=== PATIENT | female | born 1950 | race Caucasian/White ===

== ENCOUNTER 2017-09-18 10:10 | Inpatient (IN) ==
[2017-09-11 20:21] LABS: Appearance,Urine CLEAR; Bacteria,Urine 0 /hpf (0); Bilirubin,Urine NEG (NEG); Color,Urine STRAW; Glucose,Urine (UA) NEGATIVE (NEG); Leukocyte Esterase,Urine NEG /uL (NEG); Mucus,Urine FEW /hpf (0); Protein,Urine NEG (NEG); Specific Gravity,Urine 1.011 (1.000-1.035); Urine Blood 0.03 mg/dL (<0.03); Urine RBC < 1 /hpf (0-1); Urine Squamous Epithelial Cell 1 /hpf (0-4); Urine WBC < 1 /hpf (0-4); Urobilinogen,Urine NEG (NEG)
[2017-09-11 20:29] LABS: Blood Urea Nitrogen 19 mg/dl (8-23)
[2017-09-11 20:41] LABS: Basophils # (Auto) 0 K/mcL (0.0-0.3); Basophils % (Auto) 0.4 % (0.0-2.0); Eosinophils # (Auto) 0.3 K/mcL (0.0-0.7); Eosinophils % (Auto) 3.6 % (0.0-7.0); Granulocytes % (Auto) 53.2 % (38.0-78.0); Lymphocytes # (Auto) 2.6 K/mcL (1.5-4.8); Lymphocytes % (Auto) 31.9 % (15.5-49.0); Mean Cell Volume 90.8 fL (80.0-100.0); Mean Corpuscular HGB Conc 33.3 g/dL (31.0-36.0); Mean Corpuscular Hemoglobin 30.2 pg (26.0-34.0); Monocytes # (Auto) 0.9 K/mcL (0.1-0.9); Monocytes % (Auto) 10.9 % (1.0-12.0); Platelet Count 273 K/mcL (140-440); RBC 4.75 M/mcL (4.00-5.20); Red Cell Distribution Width 13.1 % (11.5-14.5)
[~2017-09-18 10:10] MED LIST: CELECOXIB 200 MG CAPSULE PO SCH; PREGABALIN 75 MG CAPSULE PO SCH; ceFAZolin 1 GM VIAL IV SCH; oxyCODONE 10 MG TAB.ER.12H PO SCH
[2017-09-18] MEDS ORDERED: MIDAZOLAM 2 MG/2 ML VIAL IV ONE (13:00)
[2017-09-18] MEDS ORDERED: TRANEXAMIC ACID 1,000 MG/10 ML VIAL IV ONE ×2 (13:00→14:37)
[2017-09-18] MEDS ORDERED: KETAMINE 100 MG/ML ML IV ONE (13:00)
[2017-09-18] MEDS ORDERED: ONDANSETRON 4 MG/2 ML VIAL IV ONE (13:00)
[2017-09-18] MEDS ORDERED: METOPROLOL TARTRATE 5 MG/5 ML VIAL IV ONE (13:00)
[2017-09-18] MEDS ORDERED: DEXAMETHASONE 10 MG/ML VIAL IV ONE (13:00)
[2017-09-18] MEDS ORDERED: LIDOCAINE HCL/PF 100 MG/5 ML SYRINGE IV ONE (13:00)
[2017-09-18] MEDS ORDERED: PROPOFOL 200 MG/20 ML VIAL IV ONE (13:00)
[2017-09-18] MEDS ORDERED: ROPIVACAINE HCL/PF 30 ML VIAL IJ ONE (13:00)
[2017-09-18] MEDS ORDERED: SUCCINYLCHOLINE 20 MG/ML ML IV ONE (13:00)
[2017-09-18] MEDS ORDERED: fentaNYL 250 MCG/5 ML VIAL IV ONE (13:00)
[2017-09-18] MEDS ORDERED: GENTAMICIN SULFATE 800 MG/20 ML VIAL IR ONE (13:46)
[2017-09-18] MEDS ORDERED: LACTATED RINGERS 250 ML IV PRN (14:27)
[2017-09-18] MEDS ORDERED: fentaNYL 100 MCG/2 ML VIAL IV PRN (14:27)
[2017-09-18] MEDS ORDERED: MEPERIDINE 25 MG/ML SYRINGE IV PRN (14:27)
[2017-09-18] MEDS ORDERED: ACETAMINOPHEN 1,000 MG/100 ML BOTTLE IV ONE (14:27)
[2017-09-18] MEDS ORDERED: ONDANSETRON 4 MG/2 ML VIAL IV PRN ×2 (14:27→14:37)
[2017-09-18] MEDS ORDERED: BENZOCAINE/MENTHOL 1 LOZENGE PO PRN ×2 (14:27→14:37)
[2017-09-18] MEDS ORDERED: diphenhydrAMINE 50 MG/ML VIAL IV PRN (14:27)
[2017-09-18] MEDS ORDERED: PROMETHAZINE 25 MG/ML VIAL IV PRN (14:27)
[2017-09-18] MEDS ORDERED: FLUMAZENIL 0.1 MG/ML ML IV PRN (14:27)
[2017-09-18] MEDS ORDERED: NALOXONE HCL 0.4 MG/ML VIAL IV PRN (14:27)
[2017-09-18] MEDS ORDERED: IPRATROPIUM/ALBUTEROL 3 ML AMPUL.NEB NEB PRN (14:27)
[2017-09-18] MEDS ORDERED: LACTATED RINGERS 1,000 ML IV SCH (14:30)
--- NOTE | 2017-09-18 14:36 | Brief Operative Note ---
Date of procedure: 09/18/17 Pre-op diagnosis: right shoulder rtc tear with glenohumeral oa Post-op diagnosis: same Procedure: right reverse tsa Grafts/Implants: Yes Anesthesia: GETA Complications: none Surgeon: Ihsan Chaves Residential Program Worker: Jemma Padilla Estimated blood loss (cc): 150 Specimens Removed/Pathology: none sent Condition: stable Disposition: PACU
[2017-09-18] MEDS ORDERED: BISACODYL 10 MG SUPP.RECT PR PRN (14:37)
[2017-09-18] MEDS ORDERED: FLEETS ADULT ENEMA PR PRN (14:37)
[2017-09-18] MEDS ORDERED: POLYETHYLENE GLYCOL 3350 17 GM PACKET PO PRN (14:37)
[2017-09-18] MEDS ORDERED: METHOCARBAMOL 750 MG TABLET PO PRN (14:37)
[2017-09-18] MEDS ORDERED: KETOROLAC 15 MG/ML VIAL IV PRN (14:37)
[2017-09-18] MEDS ORDERED: ONDANSETRON ODT 4 MG TABLET SL PRN (14:37)
[2017-09-18] MEDS ORDERED: MAGNESIUM HYDROXIDE 30 ML ORAL.SUSP PO PRN (14:37)
--- NOTE | 2017-09-18 14:37 | Discharge Summary ---
Ortho Discharge - TSA - Patient Instructions Diet: Regular Diet Activity: non weight bearing Total Shoulder Protocol: Leave immobilizer in place except for bathing and ROM. Abduction pillow. Continue to wear sling until seen by physician. Codman Pendulum : These exercises use momentum produced by your body to move your shoulder joint. Bend your knees and shift your weight to your front leg, then back, allowing your arm to swing in the same directions. Using the same technique, alternately shift your weight between your right and left legs, allowing your arm to swing from side to side. These exercises are also performed in counterclockwise and clockwise circular motions. Typically these exercises are performed several times per day, for a set number repetitions or minutes, such as 20 times in a row or 5 minutes at a time. Dressing Care: May shower in 2 days - Follow Up Plan Follow Up Appointments: Ihsan Chaves MD [Physician] - 10/03/17 1:30 pm Disposition: Home, Self-Care Prognosis: Good Rehab Potential: Good I certify that the patient requires SNF services: No Overall status at discharge: patient is progressing back to baseline
--- NOTE | 2017-09-18 15:03 | Operative Note ---
DATE OF OPERATION: 09/18/2017 PREOPERATIVE DIAGNOSIS: Right shoulder rotator cuff tear arthropathy. POSTOPERATIVE DIAGNOSIS: Right shoulder rotator cuff tear arthropathy. PROCEDURES: 1. Right reverse total shoulder arthroplasty. 2. Right shoulder proximal biceps soft tissue tenodesis. SURGEON: Dionisio Chaves M.D. CUSTOMER CARE ASSISTANT SURGEON: Jemma Padilla PA-C ANESTHESIA: General. ESTIMATED BLOOD LOSS: 150 mL COMPLICATIONS: None noted. SPECIMENS REMOVED: None. DRAINS: None. IMPLANTS: De[employer] Delta Xtend modular humeral stem size 10, CALLES coated cementless, De[employer]uy Delta Xtend modular eccentric epiphysis size 1 right, De[employer]uy Delta Xtend humeral polyethylene cup 38 +3 standard, De[employer]uy Delta Xtend glenosphere 38 mm standard, De[employer]uy Delta Xtend nonlocking metaglene screw 4.5 x 18 and locking Metaglene screw 4.5 x 25 x2 and 4.5 x 18 x2, Delta Xtend cementless metaglene, CALLES coated cementless. INDICATIONS: The patient has had a longstanding history of worsening pain in the shoulder that has failed conservative treatment. Radiographs have confirmed advanced degenerative joint disease and a failed rotator cuff. After a long discussion about treatment options, the patient elected to proceed with a reverse total shoulder arthroplasty. The risks and benefits were discussed with the patient in detail including, but not limited to, the risks of anesthesia, problems with the heart or lungs related to anesthesia, infection, compromise or injury to the nerves and blood vessels, deep venous thrombosis, pulmonary embolism, pneumonia, continued pain after surgery, worsening pain or symptoms after surgery, swelling, loss of motion, instability, fracture, arm length discrepancy, and need for repeat surgery. DESCRIPTION OF PROCEDURE: The patient was seen in the pre-anesthesia waiting room where all questions were answered and the correct side and site were identified and marked. The patient was transferred to the operating room and administered the anesthetic and given preoperative antibiotics. A time-out was then called. The patient was placed in the modified beach chair position with all prominences well padded. The extremity was prepped and draped from the fingers up to the neck. A standard deltopectoral skin incision was created. Dissection was carried down to the deltopectoral groove and the cephalic vein was isolated medially and retracted laterally with the deltoid. Retractors were placed and the coracobrachialis was split up to the coracoacromial ligament allowing retraction of the conjoined tendon. We split the subscapularis 1 cm medial to the bicipital groove and extended the split into the rotator interval. This was tagged for later repair. The supraspinatus and infraspinatus had been previously torn and retracted. The biceps was cut and a soft tissue tenodesis was performed into the anterior shoulder with #2 FiberWire. A capsular release was performed in a posterior subperiosteal direction along the humerus. The humeral head was then dislocated. We established intramedullary access and hand reamed up to get good cortical chatter with the [employer] Delta XTEND reverse total shoulder instrumentation. We then used the intramedullary guide and set to about 5 degrees of retroversion. The proximal humerus cut was performed and osteophytes were removed. A metal protector plate was then placed. Attention was then turned to the glenoid. Retractors were placed for optimal visualization and the labrum was excised in its entirety. A centralizing Steinmann pin was placed just into the posterior inferior quadrant in a standard fashion. We reamed over the pin to remove all the cartilage and get to a good base for the prosthesis. The drill was then placed over for the central peg. A cementless Metaglene was then impacted into place. We then drilled, measured, and placed the four screws starting inferior, then superior, then anterior, and finally posterior. The superior locking screw was lined up at the base of the coracoid process. We then impacted the head onto the Metaglene and tightened down in a standard fashion. Attention was then turned back to the humerus. Proximal reaming was performed off the intramedullary guide into the humeral head, using the eccentric guide to allow best coverage. We again set version and broached up to a stable implant. Trials were placed and good tension, motion, and stability were obtained at this point. Trials were removed and the final press fit femoral prosthesis was impacted into place with measured version. The final polyethylene was placed and the shoulder was reduced and again checked for motion, tension, and stability. We irrigated with 3 liters of antibiotic saline and closed the subscapularis with # 2 FiberWire. We irrigated again and closed the deltopectoral interval with several # 0 Vicryl figure of eight sutures. The subcutaneous layer was closed with 2-0 Vicryl and the skin was closed with 4-0 Monocryl in a subcuticular fashion. A sterile pressure dressing was applied and the patient was placed into an abduction sling. All needle and sponge counts were correct. The patient was transferred to the recovery room in stable condition. TANI:[email or web address] Job ID: [id number] Doc ID: [id number] Dionisio Chaves MD
--- NOTE | 2017-09-18 16:07 | XRay Report ---
HISTORY: Reason for Exam:Post-OP Total Shoulder FINDINGS: There is a well-positioned reverse total shoulder prosthesis. No fracture or abnormal soft tissue calcification are present. IMPRESSION: Well-positioned right shoulder prosthesis Interpreted and Authenticated by: Apollo Waldron 09/18/17
[2017-09-18] MEDS: 0.9 % SODIUM CHLORIDE 1,000 ML IV SCH (16:27)
[2017-09-18] MEDS: ceFAZolin 1 GM VIAL IV SCH (20:44)
[2017-09-18] MEDS: HYDROcodone/APAP 10/325MG TABLET PO PRN (20:44)
[2017-09-18] MEDS: 0.9 % SODIUM CHLORIDE 10 ML SYRINGE IV SCH (20:45)
[2017-09-18] MEDS: DOCUSATE SODIUM 100 MG CAPSULE PO SCH (20:45)
[2017-09-18] MEDS ORDERED: SENNOSIDES 1 TABLET PO SCH (21:00)
[2017-09-19] MEDS: 0.9 % SODIUM CHLORIDE 1,000 ML IV SCH ×2 (00:32→06:52)
[2017-09-19] MEDS: ceFAZolin 1 GM VIAL IV SCH (05:30)
[2017-09-19] MEDS: 0.9 % SODIUM CHLORIDE 10 ML SYRINGE IV SCH (05:31)
[2017-09-19] MEDS: HYDROcodone/APAP 10/325MG TABLET PO PRN ×2 (06:50→10:19)
--- NOTE | 2017-09-19 07:37 | Orthopedic Progress Note ---
Subjective Patient information: Note initiated : 09/19/17 at 7:35 am Service Date, if different from initiated Date: [] Patient: Nadia Merritt 67 y/o F admitted on 09/18/17 for Right Reverse Total Shoulder Arthroplasty and . Chief Complaint: [] Interval history: doing well. no pain Objective Vital signs: Vital Signs Temp Pulse Resp BP Pulse Ox 09/19/17 04:00 98.5 F 92 H 16 136/75 94 09/18/17 23:50 97.5 F 82 16 121/71 95 09/18/17 21:10 95 09/18/17 20:00 97.0 F 77 16 123/74 99 09/18/17 17:24 74 125/79 100 09/18/17 17:09 74 123/79 100 09/18/17 16:54 74 122/81 100 09/18/17 16:39 77 120/77 100 09/18/17 16:31 78 15 100 09/18/17 16:24 77 122/78 100 09/18/17 16:09 77 125/75 98 09/18/17 15:47 97.6 F 78 15 125/64 97 09/18/17 15:37 79 15 124/66 97 09/18/17 15:22 72 18 120/66 100 09/18/17 15:07 98.0 F 73 13 108/56 100 09/18/17 15:02 73 15 150/78 100 09/18/17 14:57 76 19 150/78 100 09/18/17 14:52 98.2 F 79 16 142/71 99 09/18/17 10:51 97.5 F 76 16 134/88 97 Intake and Output 09/18/17 09/19/17 09/19/17 21:59 05:59 13:59 Intake Total 1800 / 1800 1125 / 1125 792 / 792 Output Total 575 / 575 1175 / 1175 500 / 500 Balance 1225 / 1225 -50 / -50 292 / 292 Intake: IV 100 / 100 1000 / 1000 792 / 792 Sodium Chloride 0.9% 1,000 ml @ 1000 / 1000 792 / 792 125 mls/hr IV .Q8H [facility] Rx#: [id number] Oral 100 / 100 125 / 125 IV - Manual Only 1600 / 1600 Output: Void Amount 375 / 375 1175 / 1175 500 / 500 Estimated Blood Loss 200 / 200 Other: Meal Dinner Percent of Meal Consumed 60% Feeding Ability Assist with Tray Set Up Weight 161 lb 8 oz Intake & Output: Intake & Output 09/18/17 09/19/17 09/19/17 21:59 05:59 13:59 Intake Total 1800 / 1800 1125 / 1125 792 / 792 Output Total 575 / 575 1175 / 1175 500 / 500 Balance 1225 / 1225 -50 / -50 292 / 292 Weight 161 lb 8 oz Intake: IV 100 / 100 1000 / 1000 792 / 792 Sodium Chloride 0.9% 1,000 ml @ 1000 / 1000 792 / 792 125 mls/hr IV .Q8H [facility] Rx#: [id number] Oral 100 / 100 125 / 125 IV - Manual Only 1600 / 1600 Output: Void Amount 375 / 375 1175 / 1175 500 / 500 Estimated Blood Loss 200 / 200 Other: Meal Dinner Percent of Meal Consumed 60% Feeding Ability Assist with Tray Set Up Incision: Yes healing Incision clean and dry: Yes Dressing: Yes clean, Yes dry, Yes intact Weight bearing status: non Neurological exam IM: Yes normal gait, Yes oriented X3, Yes neurovascular intact Extremities exam IM: No calf tenderness, Yes neurovascular intact - Labs CBC & BMP: 09/19/17 04:15 09/11/17 16:33 Labs: 09/19/17 09/11/17 04:15 16:34 Hgb 12.9 14.3 Hct 38.2 43.1 Assessment and Plan (1) Osteoarthritis, shoulder pod 1 s/p reverse tsa left nwb sling pain control dvt prophylaxis Status: Acute
[2017-09-19] MEDS ORDERED: FUROSEMIDE 40 MG TABLET PO ONE (07:38)
[2017-09-19] MEDS ORDERED: POTASSIUM CHLORIDE 20 MEQ TABLET PO ONE (07:39)
[2017-09-19] MEDS: DOCUSATE SODIUM 100 MG CAPSULE PO SCH (08:08)
== END 2017-09-19 10:25 | disposition home or self-care (01) | DRG 483 ==
LOC: MEDSUR 10:10
PROVIDERS: ADMIT Orthopaedic Surgery Sports Medicine; ATTEND Orthopaedic Surgery Sports Medicine